=== PATIENT | male | born 1985 | race American Indian/Alaskan Native ===

== ENCOUNTER 2019-04-03 12:31 | Emergency (ER) | payer OTHER ==
[2019-04-03 12:42] VITALS: BP 116/70
--- NOTE | 2019-04-03 12:46 | Emergency Department Report ---
ED Rash HPI - HPI Chief Complaint: Skin Rash Stated Complaint: BOIL Time Seen by Provider: 04/03/19 12:40 Duration: 5 Days Location: Upper Extremities (left armpit) Suspected Cause: Unknown Rash Symptoms: No Itching, No Facial Swelling, No Tongue/Oral Swelling, No Breathing Difficulties, No Choking Sensation, No Wheezing/Dyspnea, No Peeling, No Blistering, No Fever, No Lightheaded, No Malaise, No Myalgias Severity: mild ED Review of Systems ROS: Stated complaint: BOIL Other details as noted in HPI Comment: All other systems reviewed and negative ED Past Medical Hx - Past Medical History Previous Medical History?: No - Surgical History Past Surgical History?: Yes Additional Surgical History: finger l) 5th - Social History Smoking Status: Current Every Day Smoker Substance Use Type: Alcohol - Medications Home Medications: Home Medications Medication Instructions Recorded Confirmed Last Taken Type Ciprofloxacin HCl [Cipro] 500 mg PO Q12H #20 tab 02/08/14 Unknown Rx DOXYCYCLINE Hyclate [Vibramycin 100 mg PO BID #20 capsule 02/08/14 Unknown Rx CAP] Clindamycin [Clindamycin CAP] 300 mg PO Q8H #30 cap 04/03/19 Unknown Rx Ibuprofen [Motrin] 800 mg PO Q8HR #30 tablet 04/03/19 Unknown Rx Triamcinolone 0.5% [Kenalog 0.5% 1 applic TP TID #1 tube 04/03/19 Unknown Rx CREAM] Rash Exam - Exam General: Vital signs noted. No distress. Alert and acting appropriately. HEENT: No Periorbital Edema, No Conjuctival Injection, No Chemosis, No Perioral Edema, No Tongue Edema, No Uvular Edema, No Compromised Airway, No Drooling Lungs: No Good Air Exchange, No Wheezes, No Ronchi, No Stridor, No Cough, No Labored Respirations, No Retractions, No Use of Accessory Muscles, No Other Abnormal Lung Sounds Heart: No Regular, No Murmur Skin: Yes Maculopapular Rash, Yes Tenderness, Yes Erythema, No Urticarial Rash, No Morbilliform rash, No Bulla(e), No Excoriations, No Weeping, No Edema, No Encrustations, No Other Other: Positive: Abdomen Normal ED Course Vital Signs 04/03/19 12:39 Temperature 97.9 F Pulse Rate 75 Respiratory 16 Rate Blood Pressure 116/70 O2 Sat by Pulse 100 Oximetry ED Medical Decision Making - Medical Decision Making 33 y o male presents with rash to left armpit allergic vs furuncles dermatitis discussed with patient home with medications and instructions VSS, pt is in no acute distress discuss f/u with pcp Critical care attestation.: If time is entered above; I have spent that time in minutes in the direct care of this critically ill patient, excluding procedure time. ED Disposition Clinical Impression: Rash and nonspecific skin eruption Disposition: TO HOME OR SELFCARE Is pt being admited?: No Does the pt Need Aspirin: No Condition: Stable Instructions: Impetigo (ED), Urticaria (ED), Acute Rash (ED) Additional Instructions: follow up with your pcp take medication as prescribed return if any worsening symptoms Prescriptions: Clindamycin [Clindamycin CAP] 300 mg PO Q8H #30 cap Triamcinolone 0.5% [Kenalog 0.5% CREAM] 1 applic TP TID #1 tube Ibuprofen [Motrin] 800 mg PO Q8HR #30 tablet Referrals: DEANDRE CANADA MD [Primary Care Provider] - 3-5 Days Forms: Accompanied Note, Work/School Release Form(ED) Time of Disposition: 13:37
== END 2019-04-03 13:50 | disposition home or self-care (01) ==
LOC: ED 12:31
DX: R21 Rash and other nonspecific skin eruption (principal); F17.200 Nicotine dependence, unspecified, uncomplicated; Z98.890 Other specified postprocedural states; Z91.018 Allergy to other foods

== ENCOUNTER 2020-07-25 11:29 | Emergency (ER) | payer OTHER ==
[2020-07-25 11:57] VITALS: BP 126/88
[2020-07-25] MEDS ORDERED: KETOROLAC 30 MG/1 ML INJ IM ONE (12:57)
[2020-07-25] MEDS ORDERED: dexAMETHasone 4 MG/ML VIAL IM ONE (12:57)
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
== END 2020-07-25 13:23 | disposition home or self-care (01) ==
LOC: ED 11:29
DX: R21 Rash and other nonspecific skin eruption (principal); F17.200 Nicotine dependence, unspecified, uncomplicated; Z79.899 Other long term (current) drug therapy; Z91.018 Allergy to other foods
CPT/HCPCS: 99281